=== PATIENT | female | born 1985 | race Caucasian/White ===

== ENCOUNTER 2016-09-18 18:02 | Emergency (ER) | payer OTHER ==
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
--- NOTE | 2016-09-18 18:35 | ED CLINICAL REPORT ---
Clinical Report - Physicians/Mid Levels [facility] [address] [place] [address] 09/18/2016 18:04 [id number] Time Seen: 18:27 Sep 18 2016. Arrived- By private vehicle. Historian- patient. HISTORY OF PRESENT ILLNESS Chief Complaint: BACK PAIN. The quality is noted to be "pain". It is described as radiating (dario koch at times). Onset- 9 days. Additional history - Back pain over the last 9 days she has been moving and packing boxes. Pain worsens with movement. Pain is alleviated by laying supine. No urgency or frequency. Pain reproduced with movement. Patient reports taking anti-inflammatories, hot baths as well as ice. Has not seen her primary care provider. Denies any fall or direct trauma. Patient denies an injury. REVIEW OF SYSTEMS No difficulty with urination, urinary frequency or nausea. All systems otherwise negative, except as recorded above. PAST HISTORY Problems: Thyroid Disease. Additional Surgeries: Adenoidectomy. Medications: Chantix Oral. Levothyroxine Sodium Oral. Allergies: Sulfa Antibiotics. SOCIAL HISTORY Former smoker. No alcohol use or drug use. ADDITIONAL NOTES The nursing notes have been reviewed. PHYSICAL EXAM Vital Signs: 09/18/2016 18:15 BP: 100/55. HR: 84. RR: 16. O2 saturation: 100%. Temp: 98.1 F. Appearance: Alert. Eyes: Pupils equal, round and reactive to light. ENT: Ears normal. Neck: Normal inspection. Neck nontender. CVS: Heart sounds normal. Pulses normal. Respiratory: No respiratory distress. Breath sounds normal. Abdomen: No visible injury. Back: Soft tissue tenderness (lumbar). No vertebral point tenderness. Skin: Skin warm. Neuro: Oriented X 3. Mood/affect normal. No motor deficit. No weakness. No sensory deficit. No sensory deficit. PROGRESS AND PROCEDURES Course of Care: Pain with radiate into the right lower extremity from time to time. Patient very stable,no red flags. There are no risks for spinal epidural abscess or hematoma as patient is without any risk factors such as IVDA or evidence of active infection, no midline tenderness to percussion. Hence I do not feel emergent imaging with an MRI is indicated. However I did discuss with the patient that if these symptoms develop, or if the pain does not resolve an MRI may need to be done outpatient, or in the ED if symptoms worsen acutely or new onset of the above mentioned symptoms develop. Patient is stable. Symptoms better. Patient/family counseled. Disposition: Discharged. CLINICAL IMPRESSION Acute lumbar strain. INSTRUCTIONS Apply ice. Limit lifting. Prescription Medications: Hydrocodone/APAP 5mg / 325mg: take 1 orally every 6 hours as needed for pain. Dispense fifteen (15). No refill. Flexeril 10 mg: Take 1 orally every 8 hours as needed for muscle spasm. Dispense twenty (20). No refills. Substitution is permissible. Ibuprofen 800 mg tablets: take 1 tablet orally every 8 hours for 5 days, as needed for pain. Dispense fifteen (15). No refill. Follow-up: Follow up with your doctor in four days. (Electronically signed by Barbara Mandujano P.A.-C 09/18/2016 18:59)
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
--- NOTE | 2016-09-18 18:35 | ED CLINICAL REPORT ---
Clinical Report - Physicians/Mid Levels [facility] [address] [place] [address] 09/18/2016 18:04 [id number] Time Seen: 18:27 Sep 18 2016. Arrived- By private vehicle. Historian- patient. HISTORY OF PRESENT ILLNESS Chief Complaint: BACK PAIN. The quality is noted to be "pain". It is described as radiating (dario koch at times). Onset- 9 days. Additional history - Back pain over the last 9 days she has been moving and packing boxes. Pain worsens with movement. Pain is alleviated by laying supine. No urgency or frequency. Pain reproduced with movement. Patient reports taking anti-inflammatories, hot baths as well as ice. Has not seen her primary care provider. Denies any fall or direct trauma. Patient denies an injury. REVIEW OF SYSTEMS No difficulty with urination, urinary frequency or nausea. All systems otherwise negative, except as recorded above. PAST HISTORY Problems: Thyroid Disease. Additional Surgeries: Adenoidectomy. Medications: Chantix Oral. Levothyroxine Sodium Oral. Allergies: Sulfa Antibiotics. SOCIAL HISTORY Former smoker. No alcohol use or drug use. ADDITIONAL NOTES The nursing notes have been reviewed. PHYSICAL EXAM Vital Signs: 09/18/2016 18:15 BP: 100/55. HR: 84. RR: 16. O2 saturation: 100%. Temp: 98.1 F. Appearance: Alert. Eyes: Pupils equal, round and reactive to light. ENT: Ears normal. Neck: Normal inspection. Neck nontender. CVS: Heart sounds normal. Pulses normal. Respiratory: No respiratory distress. Breath sounds normal. Abdomen: No visible injury. Back: Soft tissue tenderness (lumbar). No vertebral point tenderness. Skin: Skin warm. Neuro: Oriented X 3. Mood/affect normal. No motor deficit. No weakness. No sensory deficit. No sensory deficit. PROGRESS AND PROCEDURES Course of Care: Pain with radiate into the right lower extremity from time to time. Patient very stable,no red flags. There are no risks for spinal epidural abscess or hematoma as patient is without any risk factors such as IVDA or evidence of active infection, no midline tenderness to percussion. Hence I do not feel emergent imaging with an MRI is indicated. However I did discuss with the patient that if these symptoms develop, or if the pain does not resolve an MRI may need to be done outpatient, or in the ED if symptoms worsen acutely or new onset of the above mentioned symptoms develop. Patient is stable. Symptoms better. Patient/family counseled. Disposition: Discharged. CLINICAL IMPRESSION Acute lumbar strain. INSTRUCTIONS Apply ice. Limit lifting. Prescription Medications: Hydrocodone/APAP 5mg / 325mg: take 1 orally every 6 hours as needed for pain. Dispense fifteen (15). No refill. Flexeril 10 mg: Take 1 orally every 8 hours as needed for muscle spasm. Dispense twenty (20). No refills. Substitution is permissible. Ibuprofen 800 mg tablets: take 1 tablet orally every 8 hours for 5 days, as needed for pain. Dispense fifteen (15). No refill. Follow-up: Follow up with your doctor in four days. (Electronically signed by Barbara Mandujano P.A.-C 09/18/2016 18:59)
--- NOTE | 2016-09-18 18:36 | ED ORDER SUMMARY ---
..... Patient: HEATHER POLANCO OrderSheet [facility] VisitID: [id number] [place] [address] 30y, F Registration Date/Time: 09/18/2016 ORDER SHEET Weight: 86.1 kg (stated) Allergies: Sulfa Antibiotics GENERAL ORDERS: MEDICATION ORDERS: Hydrocodone-APAP PO 10/650 mg (NOW, HIGH ALERT MEDICATION) (18:27 09/18/2016 Belindalemaria luisa P.A.-C) (18:32 TLewis R.N.) Flexeril PO 10 mg (NOW) (18:27 09/18/2016 Belindalemaria luisa P.A.-C) (18:33 TLewis R.N.) IV FLUIDS: ORDER SHEET NOTES: [Electronically signed by Sal Plunkett R.N. (18:48 09/18/2016)] [Electronically signed by Barbara Mandujano-Emanuel (18:59 09/18/2016)] [Electronically locked/signed by Sal Plunkett R.N. (18:48 09/18/2016)]
--- NOTE | 2016-09-18 18:36 | ED ORDER SUMMARY ---
..... Patient: HEATHER POLANCO OrderSheet [facility] VisitID: [id number] [place] [address] 30y, F Registration Date/Time: 09/18/2016 ORDER SHEET Weight: 86.1 kg (stated) Allergies: Sulfa Antibiotics GENERAL ORDERS: MEDICATION ORDERS: Hydrocodone-APAP PO 10/650 mg (NOW, HIGH ALERT MEDICATION) (18:27 09/18/2016 Belindalemaria luisa P.A.-C) (18:32 TLewis R.N.) Flexeril PO 10 mg (NOW) (18:27 09/18/2016 Belindalemaria luisa P.A.-C) (18:33 TLewis R.N.) IV FLUIDS: ORDER SHEET NOTES: [Electronically signed by Sal Plunkett R.N. (18:48 09/18/2016)] [Electronically signed by Barbara Mandujano-Emanuel (18:59 09/18/2016)] [Electronically locked/signed by Sal Plunkett R.N. (18:48 09/18/2016)]
--- NOTE | 2016-09-18 18:59 | ED MAR SUMMARY ---
..... Medication Administration Record [facility] [address] [place] [address] Patient: HEATHER POLANCO Visit ID: [id number] 30y, F Weight: 86.1 kg Height/Length: 66 in BMI: 30.7 ALLERGIES: Sulfa Antibiotics Given 18:32 09/18/2016 Sal Plunkett R.N. Medication Administered: HYDROCODONE-APAP [PO] (HYDROCODONE-ACETAMINOPHEN), Dose: 2 tab 10/650 mg Tablets PO. Medication Ordered: Hydrocodone-APAP PO 10/650 mg (NOW, HIGH ALERT MEDICATION). Given 18:32 09/18/2016 Sal Plunkett R.N. Medication Administered: FLEXERIL [PO] (CYCLOBENZAPRINE HCL), Dose: 10 mg PO. Medication Ordered: Flexeril PO 10 mg (NOW).
--- NOTE | 2016-09-18 18:59 | ED DISCHARGE INSTRUCTIONS ---
Patient: HEATHER POLANCO General Instructions [facility] VisitID: [id number] [place] [address] 30y, F Registration Date/Time: 09/18/2016 Acute lumbar strain. INSTRUCTIONS Apply ice. Limit lifting. Prescription Medications: Hydrocodone/APAP 5mg / 325mg: take 1 orally every 6 hours as needed for pain. Dispense fifteen (15). No refill. Flexeril 10 mg: Take 1 orally every 8 hours as needed for muscle spasm. Dispense twenty (20). No refills. Substitution is permissible. Ibuprofen 800 mg tablets: take 1 tablet orally every 8 hours for 5 days, as needed for pain. Dispense fifteen (15). No refill. Follow-up: Follow up with your doctor in four days. ADDITIONAL INFORMATION Sciatica Sciatica ("Lumbar Radiculopathy") causes a pain that spreads from the lower back down into the buttock, hip and leg. Sometimes leg pain can occur without any back pain. Sciatica is due to irritation or pressure on a spinal nerve as it comes out of the spinal canal. This is most often due to a bulge or rupture of a nearby spinal disk (the cartilage cushion between each spinal bone), which presses on a nearby nerve. Other causes include spinal stenosis (narrowing of the spinal canal) and spasm of the pyriform muscle (a muscle in the buttocks that the sciatic nerve passes through). Sciatica may begin after a sudden twisting/bending force (such as in a car accident), or sometimes after a simple awkward movement. In either case, muscle spasm is commonly present and contributes to the pain. The diagnosis of sciatica is made from the symptoms and physical exam. Unless you had a physical injury (such as a car accident or fall), X-rays are usually not ordered for the initial evaluation of sciatica because the nerves and disks cannot be seen on an x-ray. If signs of a compressed nerve are present (for example, loss of tendon reflex or strength in the leg), an MRI (magnetic resonance imaging) scan will need to be scheduled as an outpatient. Most sciatica (80-90%) gets better with medicine, exercise, physical therapy. If symptoms continue after at least three months of medical treatment, surgery may be considered. Home Care: You may need to stay in bed the first few days. But, as soon as possible, begin sitting or walking to avoid problems with prolonged bed rest. When in bed, try to find a position of comfort. A firm mattress is best. Try lying flat on your back with pillows under your knees. You can also try lying on your side with your knees bent up towards your chest and a pillow between your knees. Avoid prolonged sitting. This puts more stress on the lower back than standing or walking. Some persons find relief with heat (hot shower, hot bath or heating pad) and massage, while others prefer cold packs (crushed or cubed ice in a plastic bag, wrapped in a towel). Try both and use the method that feels best for 20 minutes several times a day. You may use acetaminophen (Tylenol) or ibuprofen (Motrin, Advil) to control pain, unless another pain medicine was prescribed. [ NOTE: If you have chronic liver or kidney disease or ever had a stomach ulcer or GI bleeding, talk with your doctor before using these medicines.] Be aware of safe lifting methods and do not lift anything over 15 pounds until all the pain is gone. Follow Up with your doctor or this facility if your symptoms do not start to improve after one week. Physical therapy or further testing may be needed. [NOTE: If X-rays were taken, they will be reviewed by a radiologist. You will be notified of any new findings that may affect your care.] Get Prompt Medical Attention if any of the following occur: Pain becomes worse, not controlled by the prescribed medicine Weakness or numbness in one or both legs Numbness in the groin, genital area Loss of bowel or bladder control Hydrocodone Bitartrate, Acetaminophen Oral tablet What is this medicine? ACETAMINOPHEN; HYDROCODONE (a set a ALEX maren fen; acro droe KOE done) is a pain reliever. It is used to treat mild to moderate pain. How should I use this medicine? Take this medicine by mouth. Swallow it with a full glass of water. Follow the directions on the prescription label. If the medicine upsets your stomach, take the medicine with food or milk. Do not take more than you are told to take. Talk to your transportation consultant regarding the use of this medicine in children. This medicine is not approved for use in children. What side effects may I notice from receiving this medicine? Side effects that you should report to your doctor or health physician locums urgent care as soon as possible: allergic reactions like skin rash, itching or hives, swelling of the face, lips, or tongue breathing problems confusion feeling faint or lightheaded, falls stomach pain yellowing of the eyes or skin Side effects that usually do not require medical attention (report to your doctor or health physician locums urgent care if they continue or are bothersome): nausea, vomiting stomach upset What may interact with this medicine? alcohol antihistamines isoniazid medicines for depression, anxiety, or psychotic disturbances medicines for sleep muscle relaxants naltrexone narcotic medicines (opiates) for pain phenobarbital ritonavir tramadol What if I miss a dose? If you miss a dose, take it as soon as you can. If it is almost time for your next dose, take only that dose. Do not take double or extra doses. Where should I keep my medicine? Keep out of the reach of children. This medicine can be abused. Keep your medicine in a safe place to protect it from theft. Do not share this medicine with anyone. Selling or giving away this medicine is dangerous and against the law. Store at room temperature between 15 and 30 degrees C (59 and 86 degrees F). Protect from light. Keep container tightly closed. Throw away any unused medicine after the expiration date. Discard unused medicine and used packaging carefully. Pets and children can be harmed if they find used or lost packages. What should I tell my health care provider before I take this medicine? They need to know if you have any of these conditions: brain tumor Crohn's disease, inflammatory bowel disease, or ulcerative colitis drink more than 3 alcohol-containing drinks per day drug abuse or addiction head injury heart or circulation problems kidney disease or problems going to the bathroom liver disease lung disease, asthma, or breathing problems an unusual or allergic reaction to acetaminophen, hydrocodone, other opioid analgesics, other medicines, foods, dyes, or preservatives or trying to get breast-feeding What should I watch for while using this medicine? Tell your doctor or health physician locums urgent care if your pain does not go away, if it gets worse, or if you have new or a different type of pain. You may develop tolerance to the medicine. Tolerance means that you will need a higher dose of the medicine for pain relief. Tolerance is normal and is expected if you take the medicine for a long time. Do not suddenly stop taking your medicine because you may develop a severe reaction. Your body becomes used to the medicine. This does NOT mean you are addicted. Addiction is a behavior related to getting and using a drug for a non-medical reason. If you have pain, you have a medical reason to take pain medicine. Your doctor will tell you how much medicine to take. If your doctor wants you to stop the medicine, the dose will be slowly lowered over time to avoid any side effects. You may get drowsy or dizzy when you first start taking the medicine or change doses. Do not drive, use machinery, or do anything that may be dangerous until you know how the medicine affects you. Stand or sit up slowly. There are different types of narcotic medicines (opiates) for pain. If you take more than one type at the same time, you may have more side effects. Give your health care provider a list of all medicines you use. Your doctor will tell you how much medicine to take. Do not take more medicine than directed. Call emergency for help if you have problems breathing. The medicine will cause constipation. Try to have a bowel movement at least every 2 to 3 days. If you do not have a bowel movement for 3 days, call your doctor or health physician locums urgent care. Too much acetaminophen can be very dangerous. Do not take Tylenol (acetaminophen) or medicines that contain acetaminophen with this medicine. Many non-prescription medicines contain acetaminophen. Always read the labels carefully. You have been given the following additional information: Back Pain W/ Sciatica Hydrocodone Bitartrate, Acetaminophen Oral tablet Limit lifting. (Electronically signed by Barbara Mandujano P.A.-C 09/18/2016 18:59)
--- NOTE | 2016-09-18 18:59 | ED MAR SUMMARY ---
..... Medication Administration Record [facility] [address] [place] [address] Patient: HEATHER POLANCO Visit ID: [id number] 30y, F Weight: 86.1 kg Height/Length: 66 in BMI: 30.7 ALLERGIES: Sulfa Antibiotics Given 18:32 09/18/2016 Sal Plunkett R.N. Medication Administered: HYDROCODONE-APAP [PO] (HYDROCODONE-ACETAMINOPHEN), Dose: 2 tab 10/650 mg Tablets PO. Medication Ordered: Hydrocodone-APAP PO 10/650 mg (NOW, HIGH ALERT MEDICATION). Given 18:32 09/18/2016 Sal Plunkett R.N. Medication Administered: FLEXERIL [PO] (CYCLOBENZAPRINE HCL), Dose: 10 mg PO. Medication Ordered: Flexeril PO 10 mg (NOW).
--- NOTE | 2016-09-18 18:59 | ED DISCHARGE INSTRUCTIONS ---
Patient: HEATHER POLANCO General Instructions [facility] VisitID: [id number] [place] [address] 30y, F Registration Date/Time: 09/18/2016 Acute lumbar strain. INSTRUCTIONS Apply ice. Limit lifting. Prescription Medications: Hydrocodone/APAP 5mg / 325mg: take 1 orally every 6 hours as needed for pain. Dispense fifteen (15). No refill. Flexeril 10 mg: Take 1 orally every 8 hours as needed for muscle spasm. Dispense twenty (20). No refills. Substitution is permissible. Ibuprofen 800 mg tablets: take 1 tablet orally every 8 hours for 5 days, as needed for pain. Dispense fifteen (15). No refill. Follow-up: Follow up with your doctor in four days. ADDITIONAL INFORMATION Sciatica Sciatica ("Lumbar Radiculopathy") causes a pain that spreads from the lower back down into the buttock, hip and leg. Sometimes leg pain can occur without any back pain. Sciatica is due to irritation or pressure on a spinal nerve as it comes out of the spinal canal. This is most often due to a bulge or rupture of a nearby spinal disk (the cartilage cushion between each spinal bone), which presses on a nearby nerve. Other causes include spinal stenosis (narrowing of the spinal canal) and spasm of the pyriform muscle (a muscle in the buttocks that the sciatic nerve passes through). Sciatica may begin after a sudden twisting/bending force (such as in a car accident), or sometimes after a simple awkward movement. In either case, muscle spasm is commonly present and contributes to the pain. The diagnosis of sciatica is made from the symptoms and physical exam. Unless you had a physical injury (such as a car accident or fall), X-rays are usually not ordered for the initial evaluation of sciatica because the nerves and disks cannot be seen on an x-ray. If signs of a compressed nerve are present (for example, loss of tendon reflex or strength in the leg), an MRI (magnetic resonance imaging) scan will need to be scheduled as an outpatient. Most sciatica (80-90%) gets better with medicine, exercise, physical therapy. If symptoms continue after at least three months of medical treatment, surgery may be considered. Home Care: You may need to stay in bed the first few days. But, as soon as possible, begin sitting or walking to avoid problems with prolonged bed rest. When in bed, try to find a position of comfort. A firm mattress is best. Try lying flat on your back with pillows under your knees. You can also try lying on your side with your knees bent up towards your chest and a pillow between your knees. Avoid prolonged sitting. This puts more stress on the lower back than standing or walking. Some persons find relief with heat (hot shower, hot bath or heating pad) and massage, while others prefer cold packs (crushed or cubed ice in a plastic bag, wrapped in a towel). Try both and use the method that feels best for 20 minutes several times a day. You may use acetaminophen (Tylenol) or ibuprofen (Motrin, Advil) to control pain, unless another pain medicine was prescribed. [ NOTE: If you have chronic liver or kidney disease or ever had a stomach ulcer or GI bleeding, talk with your doctor before using these medicines.] Be aware of safe lifting methods and do not lift anything over 15 pounds until all the pain is gone. Follow Up with your doctor or this facility if your symptoms do not start to improve after one week. Physical therapy or further testing may be needed. [NOTE: If X-rays were taken, they will be reviewed by a radiologist. You will be notified of any new findings that may affect your care.] Get Prompt Medical Attention if any of the following occur: Pain becomes worse, not controlled by the prescribed medicine Weakness or numbness in one or both legs Numbness in the groin, genital area Loss of bowel or bladder control Hydrocodone Bitartrate, Acetaminophen Oral tablet What is this medicine? ACETAMINOPHEN; HYDROCODONE (a set a ALEX maren fen; caro droe KOE done) is a pain reliever. It is used to treat mild to moderate pain. How should I use this medicine? Take this medicine by mouth. Swallow it with a full glass of water. Follow the directions on the prescription label. If the medicine upsets your stomach, take the medicine with food or milk. Do not take more than you are told to take. Talk to your dust collector operator regarding the use of this medicine in children. This medicine is not approved for use in children. What side effects may I notice from receiving this medicine? Side effects that you should report to your doctor or health home care manager as soon as possible: allergic reactions like skin rash, itching or hives, swelling of the face, lips, or tongue breathing problems confusion feeling faint or lightheaded, falls stomach pain yellowing of the eyes or skin Side effects that usually do not require medical attention (report to your doctor or health home care manager if they continue or are bothersome): nausea, vomiting stomach upset What may interact with this medicine? alcohol antihistamines isoniazid medicines for depression, anxiety, or psychotic disturbances medicines for sleep muscle relaxants naltrexone narcotic medicines (opiates) for pain phenobarbital ritonavir tramadol What if I miss a dose? If you miss a dose, take it as soon as you can. If it is almost time for your next dose, take only that dose. Do not take double or extra doses. Where should I keep my medicine? Keep out of the reach of children. This medicine can be abused. Keep your medicine in a safe place to protect it from theft. Do not share this medicine with anyone. Selling or giving away this medicine is dangerous and against the law. Store at room temperature between 15 and 30 degrees C (59 and 86 degrees F). Protect from light. Keep container tightly closed. Throw away any unused medicine after the expiration date. Discard unused medicine and used packaging carefully. Pets and children can be harmed if they find used or lost packages. What should I tell my health care provider before I take this medicine? They need to know if you have any of these conditions: brain tumor Crohn's disease, inflammatory bowel disease, or ulcerative colitis drink more than 3 alcohol-containing drinks per day drug abuse or addiction head injury heart or circulation problems kidney disease or problems going to the bathroom liver disease lung disease, asthma, or breathing problems an unusual or allergic reaction to acetaminophen, hydrocodone, other opioid analgesics, other medicines, foods, dyes, or preservatives or trying to get breast-feeding What should I watch for while using this medicine? Tell your doctor or health home care manager if your pain does not go away, if it gets worse, or if you have new or a different type of pain. You may develop tolerance to the medicine. Tolerance means that you will need a higher dose of the medicine for pain relief. Tolerance is normal and is expected if you take the medicine for a long time. Do not suddenly stop taking your medicine because you may develop a severe reaction. Your body becomes used to the medicine. This does NOT mean you are addicted. Addiction is a behavior related to getting and using a drug for a non-medical reason. If you have pain, you have a medical reason to take pain medicine. Your doctor will tell you how much medicine to take. If your doctor wants you to stop the medicine, the dose will be slowly lowered over time to avoid any side effects. You may get drowsy or dizzy when you first start taking the medicine or change doses. Do not drive, use machinery, or do anything that may be dangerous until you know how the medicine affects you. Stand or sit up slowly. There are different types of narcotic medicines (opiates) for pain. If you take more than one type at the same time, you may have more side effects. Give your health care provider a list of all medicines you use. Your doctor will tell you how much medicine to take. Do not take more medicine than directed. Call emergency for help if you have problems breathing. The medicine will cause constipation. Try to have a bowel movement at least every 2 to 3 days. If you do not have a bowel movement for 3 days, call your doctor or health home care manager. Too much acetaminophen can be very dangerous. Do not take Tylenol (acetaminophen) or medicines that contain acetaminophen with this medicine. Many non-prescription medicines contain acetaminophen. Always read the labels carefully. You have been given the following additional information: Back Pain W/ Sciatica Hydrocodone Bitartrate, Acetaminophen Oral tablet Limit lifting. (Electronically signed by Barbara Mandujano P.A.-C 09/18/2016 18:59)
--- NOTE | 2016-09-18 18:59 | ED MED RECONCILIATION SUMMARY ---
Patient: HEATHER POLANCO Medication Reconciliation Report [facility] VisitID: [id number] [place] [address] 30y, F Registration Date/Time: 09/18/2016 Weight: 86.1 kg Height/Length: 66 in. BMI: 30.7 ALLERGIES: Sulfa Antibiotics The patient's Home Medications are listed below: THE FOLLOWING MEDICATIONS NEED TO BE RECONCILED: Chantix Oral Levothyroxine Sodium Oral The source(s) of the original Home Medication information: patient The following Medications were given to the patient in the Emergency Department: Hydrocodone-APAP [PO] PO 2 tab, administered: 09/18/2016 6:32:00 PM Flexeril [PO] PO 10 mg, administered: 09/18/2016 6:32:00 PM The following Medications were prescribed to the patient: Hydrocodone/APAP 5mg / 325mg: take 1 orally every 6 hours as needed for pain. Dispense fifteen (15). No refill. -- Barbara Mandujano P.A.-Emanuel Flexeril 10 mg: Take 1 orally every 8 hours as needed for muscle spasm. Dispense twenty (20). No refills. Substitution is permissible. -- Barbara Mandujano P.A.-Emanuel Ibuprofen 800 mg tablets: take 1 tablet orally every 8 hours for 5 days, as needed for pain. Dispense fifteen (15). No refill. -- Barbara Mandujano P.A.-Emanuel
--- NOTE | 2016-09-18 18:59 | ED MED RECONCILIATION SUMMARY ---
Patient: HEATHER POLANCO Medication Reconciliation Report [facility] VisitID: [id number] [place] [address] 30y, F Registration Date/Time: 09/18/2016 Weight: 86.1 kg Height/Length: 66 in. BMI: 30.7 ALLERGIES: Sulfa Antibiotics The patient's Home Medications are listed below: THE FOLLOWING MEDICATIONS NEED TO BE RECONCILED: Chantix Oral Levothyroxine Sodium Oral The source(s) of the original Home Medication information: patient The following Medications were given to the patient in the Emergency Department: Hydrocodone-APAP [PO] PO 2 tab, administered: 09/18/2016 6:32:00 PM Flexeril [PO] PO 10 mg, administered: 09/18/2016 6:32:00 PM The following Medications were prescribed to the patient: Hydrocodone/APAP 5mg / 325mg: take 1 orally every 6 hours as needed for pain. Dispense fifteen (15). No refill. -- Barbara Mandujano P.A.-Emanuel Flexeril 10 mg: Take 1 orally every 8 hours as needed for muscle spasm. Dispense twenty (20). No refills. Substitution is permissible. -- Barbara Mandujano P.A.-Emanuel Ibuprofen 800 mg tablets: take 1 tablet orally every 8 hours for 5 days, as needed for pain. Dispense fifteen (15). No refill. -- Barbara Mandujano P.A.-Emanuel
== END 2016-09-18 18:31 | disposition home or self-care (01) ==
LOC: ED SRH 18:02
DX: S39.012A Strain of muscle, fascia and tendon of lower back, initial encounter (principal); X58.XXXA Exposure to other specified factors, initial encounter; Y93.89 Activity, other specified; Y92.019 Unspecified place in single-family (private) house as the place of occurrence of the external cause; E07.9 Disorder of thyroid, unspecified; Z79.899 Other long term (current) drug therapy; Z87.891 Personal history of nicotine dependence; Z88.1 Allergy status to other antibiotic agents